=== PATIENT | female | born 1990 | race Asian ===

== ENCOUNTER 2016-11-21 05:26 | Emergency (ER) | payer OTHER ==
[~2016-11-21] VITALS: Ht 167.6 cm; Wt 68.0 kg
[2016-11-21 06:13] LABS: POTASSIUM 3.4 mmol/L (3.6-5.2); SODIUM 136 mmol/L (136-145)
[2016-11-21 06:28] LABS: PARTIAL THROMBOPLASTIN TIME 27.2 SECONDS (24.5-33.6)
[2016-11-21 06:30] LABS: PLATELET COUNT 237 K/uL (152-353)
[2016-11-21 07:01] VITALS: BP 125/78; TEMP 98.6
== END 2016-11-21 07:03 | disposition home or self-care (01) ==
LOC: ED 05:26
DX: R07.89 Other chest pain (principal); B96.81 Helicobacter pylori [H. pylori] as the cause of diseases classified elsewhere
CPT/HCPCS: 36415; 80053; 82150; 82550; 83690; 84484; 85027; 85610; 85730; 86318; 99283